=== PATIENT | female | born 1990 | race Hispanic/Latino ===

== ENCOUNTER 2018-07-13 14:48 | Emergency (ER) | payer OTHER, SELFPAY ==
[2018-07-13 14:51] VITALS: BP 132/93; PULSE 79; RESP 20; TEMP 36.6; O2SAT 99
--- NOTE | 2018-07-13 14:56 | DI.RAD.S_ITS ---
PROCEDURE: XR CHEST 2V INDICATIONS: cough/fever TECHNIQUE: 2 views of the chest were acquired. COMPARISON: None. FINDINGS: Surgical changes and devices: None. Lungs and pleura: Lungs are clear. No pleural effusions or pneumothorax. Mediastinum: Mediastinal contours are normal. Heart size is normal. Bones and chest wall: No suspicious bony abnormalities. Soft tissues appear unremarkable. IMPRESSION: No acute process. Dictated by: Denise Avalos M.D. on 07/13/2018 at 15:21 Approved by: Denise Avalos M.D. on 07/13/2018 at 15:21
--- NOTE | 2018-07-13 19:14 | ED.URI ---
HPI - URI/Sore Throat General Chief Complaint: Upper Respiratory Symptoms Stated Complaint: Cough,tightness of chest mucus Time Seen by Provider: 07/13/18 16:01 Source: patient and family Mode of arrival: ambulatory Limitations: no limitations History of Present Illness HPI Narrative: 27-year-old nonsmoking female is otherwise healthy and presents with her family in the chief complaint of multiple upper respiratory symptoms for the past 2 if not 3 weeks. She has had occasional headache, some sore throat and cough which produces sputum. She no longer has a sore throat and denies any fever. 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 She is able to eat and drink without difficulty and is not dizzy or weak or lightheaded. MD Complaint: cough Onset (ago): day(s) Duration: intermittent Severity: moderate Description of mucous: clear Able to tolerate fluids by mouth: Yes Context: sick contacts Associated symptoms: myalgias and cough Treatments prior to arrival: acetaminophen, ibuprofen and cold medicine Related Data Home Medications Medication Instructions Recorded Confirmed Trinessa 1 tab PO DAILY 07/13/18 07/13/18 fluticasone propionate 1 spray INTRANASAL DIRECTED 07/13/18 pseudoephedrine HCl [Sudogest] 60 mg PO QID PRN 07/13/18 07/13/18 sertraline 50 mg PO DAILY 07/13/18 07/13/18 sodium chloride [Deep Sea Nasal] 1 spray INTRANASAL DIRECTED 07/13/18 07/13/18 Previous Rx's Medication Instructions Recorded benzonatate [Tessalon Perles] 100 mg PO TID PRN #14 cap 07/13/18 Review of Systems Constitutional Reports body ache(s), Denies chills, Reports difficulty sleeping, Denies fever(s), Denies lethargy and Denies weakness Eyes Denies change in vision, Denies eye discharge, Denies irritation and Denies loss of vision ENT Ears, Nose, Mouth, and Throat: Denies change in voice, Reports nasal discharge, Denies neck pain and Reports sore throat Cardiovascular Denies chest pain, Denies irregular heart rhythm, Denies lightheadedness, Denies palpitations, Denies dyspnea, Denies dyspnea on exertion and Denies orthopnea Respiratory Reports cough, Denies dyspnea, Denies dyspnea on exertion and Denies wheezing Gastrointestinal Gastrointestinal: Denies abdominal pain, Denies change in bowel habits, Denies diarrhea, Denies nausea and Denies vomiting Genitourinary Denies hematuria, Denies flank pain, Denies urinary incontinence and Denies urinary urgency Musculoskeletal Denies neck pain Integumentary/Breasts Denies pruritus, Denies erythema, Denies rash and Denies wounds Neurologic Denies confusion, Denies loss of vision and Denies weakness Psychiatric Denies anxiety, Denies confusion, Denies depression, Denies homicidal ideation and Denies suicidal ideation Endocrine Denies palpitations Hematologic/Lymphatic Denies easy bruising Allergic/Immunologic Denies wheezing PFSH Social History Smoking Status: Never smoker Social History Smoking Status: Never smoker Exam Narrative Exam Narrative: GEN: AOx3 and in mild distress EYES: Pupils are equal, round, and reactive to light and accommodation. Extraoccular muscles are intact bilaterally. There is no subconjunctival hemorrhage or exudate. CHEST: Lungs are clear to auscultation bilaterally and free of wheezes, rales, or rhonchi. Heart rate is regular rhythm, there are no murmurs, clicks, rubs, or gallops. There is no chest wall tenderness. ABD: Abdomen is soft and nontender. There is no guarding or rebound. Bowel sounds are normal in all 4 quadrants. There is no mass or organomegaly. EXT: Full painless ROM of all extremities with no loss of sensation or strength. SKIN: Warm, pink, and dry. No erythema or rash Initial Vital Signs Initial Vital Signs: Vital Signs Temperature 97.9 F 07/13/18 14:51 Pulse Rate 79 07/13/18 14:51 Respiratory Rate 20 07/13/18 14:51 Blood Pressure 132/93 H 07/13/18 14:51 Pulse Oximetry 99 07/13/18 14:51 Course Orders Ordered: ED Orders 07/13/18 14:56 XR chest 2V Stat Influenza A and B by PCR Rapid Stat Vital Signs - 8 hr 07/13/18 14:51 Temperature 97.9 F Pulse Rate 79 Respiratory Rate 20 Blood Pressure 132/93 H Pulse Oximetry 99 MDM - URI/Sore Throat Lab Data Lab Results 07/13/18 Range/Units 14:56 Influenza A & B (PCR) Positive, type a A (Negative) Imaging Data Chest x-ray: Radiologist's impression: [facility] [address] [place] [address] XRay Report Signed Patient: Carlene Fuentes [facility]#: [id number] : 1990Acct:[id number] Age/Sex: 27 / FDate of Service: 07/13/18 Loc: ED Accession Number: [id number] Procedure: XR chest 2V Ordering Provider: Jose Roberto Hammond D.O. PROCEDURE: XR CHEST 2V INDICATIONS: cough/fever TECHNIQUE: 2 views of the chest were acquired. COMPARISON: None. FINDINGS: Surgical changes and devices: None. Lungs and pleura: Lungs are clear. No pleural effusions or pneumothorax. Mediastinum: Mediastinal contours are normal. Heart size is normal. Bones and chest wall: No suspicious bony abnormalities. Soft tissues appear unremarkable. IMPRESSION: No acute process. Dictated by: Denise Avalos M.D. on 07/13/2018 at 15:21 Approved by: Denise Avalos M.D. on 07/13/2018 at 15:21 [facility] Narrative Medical decision making narrative: Patient with multiple upper respiratory symptoms for multiple weeks. She has had no fever and is outside of any time frame to treat with Tamiflu. She is given return precautions and understands as evidenced by her ability to rec[place] back [place] Discharge Plan Departure Patient Disposition: Home Clinical Impression: Influenza A Discharge Date/Time: 07/13/18 16:34 Interventions: ED Discharge Assessment Last Done: 07/13/18 16:34 Instructions: DI for Influenza -- Adult Activity Restrictions/Additional Instructions: *You have been diagnosed with [ influenza a ] *What to do: *Take medications as directed *Follow up with your primary care provider in 2-3 days, call for an appointment. Let them know you were seen in the Emergency Department and that we ask that you be seen in follow up *Return to ER if you should have any new, worsening or concerning symptoms Prescriptions: New benzonatate [Tessalon Perles] 100 mg capsule 100 mg PO TID PRN (Reason: cough) Qty: 14 RF: 0 No Action fluticasone propionate 50 mcg/actuation spray,suspension 1 spray Intranasal DIRECTED RF: 0 pseudoephedrine HCl [Sudogest] 60 mg tablet 60 mg PO QID PRN (Reason: Congestion) RF: 0 sertraline 50 mg tablet 50 mg PO DAILY RF: 0 sodium chloride [Deep Sea Nasal] 0.65 % aerosol,spray 1 spray Intranasal DIRECTED RF: 0 Trinessa 1 tab PO DAILY RF: 0
--- NOTE | 2018-07-13 19:17 | ED_ITS ---
HPI - URI/Sore Throat General Chief Complaint: Upper Respiratory Symptoms Stated Complaint: Cough,tightness of chest mucus Time Seen by Provider: 07/13/18 16:01 Source: patient and family Mode of arrival: ambulatory Limitations: no limitations History of Present Illness HPI Narrative: 27-year-old nonsmoking female is otherwise healthy and presents with her family in the chief complaint of multiple upper respiratory symptoms for the past 2 if not 3 weeks. She has had occasional headache, some sore throat and cough which produces sputum. She no longer has a sore throat and denies any fever. 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 She is able to eat and drink without difficulty and is not dizzy or weak or lightheaded. MD Complaint: cough Onset (ago): day(s) Duration: intermittent Severity: moderate Description of mucous: clear Able to tolerate fluids by mouth: Yes Context: sick contacts Associated symptoms: myalgias and cough Treatments prior to arrival: acetaminophen, ibuprofen and cold medicine Related Data Home Medications Medication Instructions Recorded Confirmed Trinessa 1 tab PO DAILY 07/13/18 07/13/18 fluticasone propionate 1 spray INTRANASAL DIRECTED 07/13/18 pseudoephedrine HCl [Sudogest] 60 mg PO QID PRN 07/13/18 07/13/18 sertraline 50 mg PO DAILY 07/13/18 07/13/18 sodium chloride [Deep Sea Nasal] 1 spray INTRANASAL DIRECTED 07/13/18 07/13/18 Previous Rx's Medication Instructions Recorded benzonatate [Tessalon Perles] 100 mg PO TID PRN #14 cap 07/13/18 Review of Systems Constitutional Reports body ache(s), Denies chills, Reports difficulty sleeping, Denies fever(s), Denies lethargy and Denies weakness Eyes Denies change in vision, Denies eye discharge, Denies irritation and Denies loss of vision ENT Ears, Nose, Mouth, and Throat: Denies change in voice, Reports nasal discharge, Denies neck pain and Reports sore throat Cardiovascular Denies chest pain, Denies irregular heart rhythm, Denies lightheadedness, Denies palpitations, Denies dyspnea, Denies dyspnea on exertion and Denies orthopnea Respiratory Reports cough, Denies dyspnea, Denies dyspnea on exertion and Denies wheezing Gastrointestinal Gastrointestinal: Denies abdominal pain, Denies change in bowel habits, Denies diarrhea, Denies nausea and Denies vomiting Genitourinary Denies hematuria, Denies flank pain, Denies urinary incontinence and Denies urinary urgency Musculoskeletal Denies neck pain Integumentary/Breasts Denies pruritus, Denies erythema, Denies rash and Denies wounds Neurologic Denies confusion, Denies loss of vision and Denies weakness Psychiatric Denies anxiety, Denies confusion, Denies depression, Denies homicidal ideation and Denies suicidal ideation Endocrine Denies palpitations Hematologic/Lymphatic Denies easy bruising Allergic/Immunologic Denies wheezing PFSH Social History Smoking Status: Never smoker Social History Smoking Status: Never smoker Exam Narrative Exam Narrative: GEN: AOx3 and in mild distress EYES: Pupils are equal, round, and reactive to light and accommodation. Extraoccular muscles are intact bilaterally. There is no subconjunctival hemorrhage or exudate. CHEST: Lungs are clear to auscultation bilaterally and free of wheezes, rales, or rhonchi. Heart rate is regular rhythm, there are no murmurs, clicks, rubs, or gallops. There is no chest wall tenderness. ABD: Abdomen is soft and nontender. There is no guarding or rebound. Bowel sounds are normal in all 4 quadrants. There is no mass or organomegaly. EXT: Full painless ROM of all extremities with no loss of sensation or strength. SKIN: Warm, pink, and dry. No erythema or rash Initial Vital Signs Initial Vital Signs: Vital Signs Temperature 97.9 F 07/13/18 14:51 Pulse Rate 79 07/13/18 14:51 Respiratory Rate 20 07/13/18 14:51 Blood Pressure 132/93 H 07/13/18 14:51 Pulse Oximetry 99 07/13/18 14:51 Course Orders Ordered: ED Orders 07/13/18 14:56 XR chest 2V Stat Influenza A and B by PCR Rapid Stat Vital Signs - 8 hr 07/13/18 14:51 Temperature 97.9 F Pulse Rate 79 Respiratory Rate 20 Blood Pressure 132/93 H Pulse Oximetry 99 MDM - URI/Sore Throat Lab Data Lab Results 07/13/18 Range/Units 14:56 Influenza A & B (PCR) Positive, type a A (Negative) Imaging Data Chest x-ray: Radiologist's impression: [facility] [address] [place] [address] XRay Report Signed Patient: Carlene Fuentes [facility]#: [id number] : 1990Acct:[id number] Age/Sex: 27 / FDate of Service: 07/13/18 Loc: ED Accession Number: [id number] Procedure: XR chest 2V Ordering Provider: Jose Roberto Hammond D.O. PROCEDURE: XR CHEST 2V INDICATIONS: cough/fever TECHNIQUE: 2 views of the chest were acquired. COMPARISON: None. FINDINGS: Surgical changes and devices: None. Lungs and pleura: Lungs are clear. No pleural effusions or pneumothorax. Mediastinum: Mediastinal contours are normal. Heart size is normal. Bones and chest wall: No suspicious bony abnormalities. Soft tissues appear unremarkable. IMPRESSION: No acute process. Dictated by: Denise Avalos M.D. on 07/13/2018 at 15:21 Approved by: Denise Avalos M.D. on 07/13/2018 at 15:21 [place] Narrative Medical decision making narrative: Patient with multiple upper respiratory symptoms for multiple weeks. She has had no fever and is outside of any time frame to treat with Tamiflu. She is given return precautions and understands as evidenced by her ability to recite his back to [place] Discharge Plan Departure Patient Disposition: Home Clinical Impression: Influenza A Discharge Date/Time: 07/13/18 16:34 Interventions: ED Discharge Assessment Last Done: 07/13/18 16:34 Instructions: DI for Influenza -- Adult Activity Restrictions/Additional Instructions: *You have been diagnosed with [ influenza a ] *What to do: *Take medications as directed *Follow up with your primary care provider in 2-3 days, call for an appointment. Let them know you were seen in the Emergency Department and that we ask that you be seen in follow up *Return to ER if you should have any new, worsening or concerning symptoms Prescriptions: New benzonatate [Tessalon Perles] 100 mg capsule 100 mg PO TID PRN (Reason: cough) Qty: 14 RF: 0 No Action fluticasone propionate 50 mcg/actuation spray,suspension 1 spray Intranasal DIRECTED RF: 0 pseudoephedrine HCl [Sudogest] 60 mg tablet 60 mg PO QID PRN (Reason: Congestion) RF: 0 sertraline 50 mg tablet 50 mg PO DAILY RF: 0 sodium chloride [Deep Sea Nasal] 0.65 % aerosol,spray 1 spray Intranasal DIRECTED RF: 0 Trinessa 1 tab PO DAILY RF: 0
== END 2018-07-13 16:34 | disposition home or self-care (01) ==
PROVIDERS: Emergency Provider Emergency Medicine
DX: J10.1 Influenza due to other identified influenza virus with other respiratory manifestations (principal)
CPT/HCPCS: 71046; 87400; 99282; 99283